=== PATIENT | female | born 1935 ===

== ENCOUNTER 2018-10-23 00:14 | Inpatient (IN) | payer MEDICARE, OTHER ==
[2018-10-23] VITALS (14 sets, daily range): BP systolic 113–182; BP diastolic 47–88
[~2018-10-23] VITALS: Ht 167.6 cm; Wt 60.3 kg
[~2018-10-23 00:14] MED LIST: AMLO-101 PO; ASPI-1471 PO; ATOR40TA24 PO; BACITRACIN 50000 UNIT/VIAL 50,000 UNIT in NS 0.9% IRRIG(*) 1000ML PLCT 1,000 ML IR PRN; CARV25TA77 PO; INSU100V24 SQ; LANI SUBQ; LEVO-3 PO; RAMI10CA9 PO; UBID100C48 PO; ceFAZolin(*) 1 GM VIAL 1 GM in NS(*) 0.9% 100 ML MINI-BAG 100 ML IVPB ONE
[2018-10-23] MEDS: ACETAMINOPHEN 500 MG TAB PO ONE ×2 (08:02→08:05)
[2018-10-23] MEDS ORDERED: NORMOSOL R SOLN(*) 1000 ML BAG 1,000 ML IV PRN (08:05)
[2018-10-23] MEDS ORDERED: MIDAZOLAM 2 MG/2 ML VIAL IVP PRN (08:05)
[2018-10-23] MEDS ORDERED: PREGABALIN 75 MG CAPSULE PO ONE (08:05)
[2018-10-23] MEDS ORDERED: ceFAZolin(*) 1 GM VIAL 1 GM in NS(*) 0.9% 100 ML MINI-BAG 100 ML IVPB ONE (08:05)
[2018-10-23] MEDS ORDERED: BACITRACIN 50000 UNIT/VIAL 50,000 UNIT in NS 0.9% IRRIG(*) 1000ML PLCT 1,000 ML IR PRN (08:05)
[2018-10-23] MEDS ORDERED: FAMOTIDINE 20 MG TAB PO ONE (08:05)
[2018-10-23] MEDS ORDERED: LIDOCAINE/SOD BICARB 8.4% SYR ID ONE (08:05)
[2018-10-23] MEDS ORDERED: ROPIVACAINE 0.2% 20 ML VIAL ONE (09:07)
[2018-10-23] MEDS ORDERED: HYDROmorphone HCL 2 MG/ML SDV ONE (09:44)
[2018-10-23] MEDS ORDERED: ONDANSETRON 4 MG/2 ML VIAL ONE (11:17)
[2018-10-23] MEDS ORDERED: PROPOFOL EMUL(*) 10MG/ML 20 ML 20 ML ONE (11:17)
[2018-10-23] MEDS ORDERED: DEXAMETHASONE SOD PHOS 10MG/ML ONE (11:17)
[2018-10-23] MEDS ORDERED: SUGAMMADEX SOD 200 MG/2 ML SDV ONE (11:34)
--- NOTE | 2018-10-23 11:53 | RADIOLOGY IMAGING REPORT ---
FACILITY: [facility] PATIENT NAME: Shi Pierre : 1935 MR: [id number] V: [id number] EXAM DATE: ORDERING PHYSICIAN: WILMER DAS TECHNOLOGIST: Location: [facility] Patient: Shi Pierre : 1935 Visit/Account:[id number] Date of Sevice: 10/23/2018 Lumbar spine Indication: Back pain. Comparison: None available FINDINGS: Single lateral intraoperative view of the lumbar spine demonstrates extensive degenerative changes of the disks, endplates and posterior elements. Metallic hardware is noted anterior to the s pine at the presumed level of L4, however the lumbar spine is not entirely visualized to confirm the level. IMPRESSION: 1. Multilevel degenerative changes of the lower lumbar spine. Report Dictated By: WILMER REGAN at 10/23/2018 11:35 AM Report E-Signed By: WILMER REGAN at 10/23/2018 11:45 AM WSN:[id number]
[2018-10-23] MEDS ORDERED: LR(*) 1000 ML BAG 1,000 ML IV PRN (12:30)
[2018-10-23] MEDS ORDERED: BISACODYL 10 MG SUPP PR PRN (12:30)
[2018-10-23] MEDS ORDERED: ACETAMINOPHEN 500 MG TAB PO PRN (12:30)
[2018-10-23] MEDS ORDERED: ONDANSETRON 4 MG/2 ML VIAL IVP PRN (12:30)
[2018-10-23] MEDS ORDERED: ACETAMINOPHEN(*)1000 MG/100 ML 100 ML IVPB PRN (12:30)
[2018-10-23] MEDS ORDERED: oxyCODONE HCL 5 MG CAP PO PRN (12:30)
[2018-10-23] MEDS ORDERED: FLUSH 10 ML SYR IVP PRN (12:30)
[2018-10-23] MEDS ORDERED: APAP/HYDROCODONE 325/5 TAB PO PRN (12:30)
[2018-10-23] MEDS ORDERED: BENZOCAINE/MENTHOL 1 EACH LOZG PO PRN (12:30)
[2018-10-23] MEDS ORDERED: diphenhydrAMINE 25 MG CAP PO PRN (12:30)
[2018-10-23] MEDS ORDERED: MAGNESIUM HYDROXIDE* 30ML UDCP PO PRN (12:30)
[2018-10-23] MEDS ORDERED: HYDROmorphone HCL 2 MG/ML SDV IVP PRN (12:30)
--- NOTE | 2018-10-23 12:36 | OPERATIVE REPORT 1 ---
EVENT DATE: October 23, 2018 SURGEON: Duncan Simpson MD ANESTHESIOLOGIST: Wayne Guzman MD ANESTHESIA: General endotracheal. DIRECTOR FOOD AND BEVERAGE: Jamie Arizmendi PA-C PREOPERATIVE DIAGNOSES 1. Retained deep hardware in the form of interspinous process spacers at L2-L3, L3-L4 and L4-L5. 2. Lumbar kyphosis/loss of lordosis. 3. Severe spinal stenosis at L2-L3. POSTOPERATIVE DIAGNOSES 1. Retained deep hardware in the form of interspinous process spacers at L2-L3, L3-L4 and L4-L5. 2. Lumbar kyphosis/loss of lordosis. 3. Severe spinal stenosis at L2-L3. PROCEDURE PERFORMED 1. Removal of spinous process spacers at L2-L3, L3-L4 and L4-L5. 2. L2-L3 laminectomy and bilateral foraminotomies. IV FLUIDS 1700 cc. ESTIMATED BLOOD LOSS 120 cc. IMPLANTS None. SPECIMENS None. DRAINS None. COMPLICATIONS None. DISPOSITION Post-Anesthesia Care Unit. INDICATIONS FOR SURGERY Ms. Pierre is an 83-year old female who underwent placement of interspinous process spacers in 2013. Postoperatively, she had some improvement in her symptoms but over time she has had worsening back pain that she feels is due to the fact that she has a forward flexed posture since placement of said spacers. Her imaging studies showed spinous process devices that we ultimately identified as [place] [employer] spinous process plates. We discussed potential removal of those to see if we could give her an increase in flexibility so that she could regain some of her lumbar lordosis but before doing this we also obtained an MRI that showed severe stenosis at L2-L3, so I recommended performing an L2-L3 laminectomy at the same time to hopefully avoid the necessity of going back for additional surgery. Ms. Pierre agreed with this plan. Prior to surgery, I explained in detail to the patient the possible risks of surgery. These risks include bleeding, infection, damage to surrounding structures, nerve root injury, spinal fluid leak, persistent and/or worsening pain, need for further surgery, , blindness, sexual dysfunction, autonomic nervous system dysfunction and other unforeseen medical and surgical complications. An understanding that in general spinal surgery is more predictive at improving extremity discomfort than axial back pain was stressed. DESCRIPTION OF PROCEDURE On the date of surgery, the patient was met in the preoperative hold area and all questions were answered. The operative site was identified and marked by myself. The patient was brought in good condition to the operating room and after succumbing to anesthesia was positioned in the prone position on a Rell table. All bony protuberances and soft tissues were well padded in the standard fashion. Preoperative antibiotics were administered according to the appropriate timing schedule. Care was taken to maintain appropriate perfusion pressure during anesthesia. At the conclusion of the procedure, sponge and needle counts were correct x2. A final time-out was undertaken by members of the operating team to confirm correct patient, correct levels and correct surgery. The patient was then prepped and draped in a standard sterile orthopedic fashion and a vertical incision was made utilizing the surgical scar from the previous surgery. Sharp dissection was carried out down to the spinous processes and then out lateral over the spinous processes until I was able to identify and uncover the interspinous devices at L2-L3, L3-L4 and L4-L5. Once we cleared these of soft tissue and any overlying bone, the screwdriver was used to loosen the set screw and we then were able to ultimately remove the spinous process spacers at all three levels. All parts of each spacer were identified after they were removed to ensure that no pieces were retained Attention was then turned to performance of the lumbar laminectomy. The spinous process of L2 was removed with a combination of [place] rongeur and a quickhuddle bone cutter. The lamina was then thinned down the midline and bilaterally using a high-speed bur. The ligamentum flavum was teased away from the inferior aspect of the L2 lamina using a Stack curette and I then was able to slide a [place] elevator into the canal to separate any dural adhesions from surrounding bone or soft tissue prior to the use of a Kerrison punch. #3 and #4 Kerrison rongeurs were used to perform a midline decompression and I then performed bilateral lateral recess decompression, removing an incredible amount of thickened and somewhat calcified ligamentum flavum from within the canal, particularly adjacent to the L2-L3 facet joint. A [place] elevator and then a Rios ball-tip probe were passed along the lateral gutters once the decompressions were complete to ensure that we had adequate decompression of the neural elements, both in the lateral gutters and then out the foramina of all involved nerve roots. Hemostasis was obtained in the lateral gutters with the use of FloSeal and surgical patties and we then irrigated the entire wound with copious antibiotic impregnated sterile saline solution. The surgical patties were then removed and the wound closed in layers using running Stratafix suture for the deep fascia, inverted interrupted sutures for the subcutaneous tissue and then a running subcuticular skin stitch. Sponge and needle counts were correct x2. POSTOPERATIVE CARE PLAN The patient will remain in the hospital until she meets discharge criteria. Once she has cleared PT and is doing otherwise well, she will be discharged home with instructions to follow up in two weeks for wound check and examination. TRINA
[2018-10-23] MEDS ORDERED: fentaNYL CITR 100 MCG/2 ML AMP ONE (12:54)
--- NOTE | 2018-10-23 15:30 | NUR ---
Physical Therapy Impression Pt notes that she is having increased discomfort at R) groin and indicates a radiating pattern that extends from her back and wraps around to the inguinal triangle area. Pt describes this as a spasm but no palpable muscle tension is noted in this area. SBAR with nursing to pass along pt's concern. Pt was then agreeable to attempt side stepping at EOB in an attempt to relieve this symptom. Pt required CGA/Min assist for initial sit to stand and then was CGA for side stepping and log roll. Pt positioned comfortably in side lying upon PT's departure with pillows to prevent twisting. Pt would benefit from home healthcare services as she resides alone and is currently having greater difficulty with pain management issues. Physical Therapy Goals 1. Pt to be SBA/CGA for bed mobility and supine to/from sit transfers 2. Pt to be SBA/CGA for sit to/from stand transfers 3. Pt to ambulate x 100' with least restrictive device 4. Pt to tolerate up/down 2 steps with rail and SBA/CGA Patient's Goals
[2018-10-23] MEDS: DIAZEPAM 5 MG TAB PO PRN ×2 (15:46→23:30)
--- NOTE | 2018-10-23 16:15 | Hospitalist Consultation ---
History of Present Illness Requesting Physician Dr. Simpson Reason for Consult Hypertension and Diabetes management History of Present Illness S/P laminectomy from Dr. Simpson on 10/23. No surgical complications reported. Dressing required reinforcement after she was admitted to Med/Surg unit. History Problems: (1) HTN (hypertension) (2) Hyperlipidemia (3) Diabetes (4) DVT (deep venous thrombosis) (5) Pulmonary emboli Status: Resolved Home Meds Reported Medications Insulin Lispro 100 Un/Ml Vial (HUMALOG 100 U/ML VIAL) 100 Unit/1 Ml Vial, 0 SQ PRN, VIAL 10/16/18 Insulin Glargine (LANTUS) 100 Unit/Ml Soln, 15 UNIT SUBQ QAM, ML 10/16/18 Ramipril (RAMIPRIL) 10 Mg Capsule, 10 MG PO BID, CAPSULE 10/16/18 Ubidecarenone (COQ-10) 100 Mg Capsule, 100 MG PO QDAY, CAPSULE 10/16/18 Aspirin (ASPIR 81) 81 Mg Tablet.dr, 81 MG PO QDAY, TAB 10/16/18 Atorvastatin Calcium (LIPITOR) 40 Mg Tablet, 1 TAB PO QDAY, TAB 10/16/18 Amlodipine Besylate (NORVASC) 5 Mg Tablet, 1 TAB PO QDAY, TAB 10/16/18 Carvedilol (COREG) 25 Mg Tablet, 25 MG PO BID, #10 TAB 10/16/18 Levothyroxine Sodium (LEVOTHYROXINE SODIUM) 100 Mcg Tablet, 125 MCG PO QDAY, TAB 10/16/18 Allergies: Coded Allergies: No Known Drug Allergies (Unverified , 10/16/18) Smoking Status: Former Smoker When Quit Tobacco?: LATE Caffeine Intake: Coffee Caffeine/Cups Per Day: 6/DAY Hx Alcohol Use: No Hx Substance Use Disorder: No Social Drug Use: Never History of IV Drug Use: No Review of Systems All Systems Reviewed/Normal: Yes Exam Vital Signs Vital Signs Date Time Temp Pulse Resp B/P (MAP) Pulse Ox O2 Delivery O2 Flow Rate FiO2 10/23/18 15:15 63 144/67 (92) 10/23/18 15:00 96 Nasal Cannula 3.0 10/23/18 14:10 16 10/23/18 14:10 97.7 General Appearance: Alert, Awake, No Acute Distress Cardiovascular: Regular Rate and Rhythm Respiratory: No Respiratory Distress, Clear to Auscultation Assessment and Plan Problems: (1) S/P laminectomy Assessment & Plan: S/P Laminectomy by Dr. Simpson on 10/23. Considerable amount of post op bleeding saturating through dressing and notable swelling around incision. Aspirin on hold, will consider speaking with surgery prior to restarting Aspirin. (2) Diabetes Assessment & Plan: Blood sugar in PACU was 121. She manages with Lantus and Humalog at home. Will cover with AC/HS blood sugar checks and SSI level 1. Consider restarting Lantus if necessary, when she is eating. (3) HTN (hypertension) Assessment & Plan: Covered by Coreg, Norvasc, and Ramipril with parameters. (4) Hyperlipidemia Assessment & Plan: Covered by Lipitor. (5) Pulmonary emboli Status: Resolved Assessment & Plan: Hx of PE. based on post op bleeding Aspirin on hold, may consider discussing with surgery concerning any anticoagulation and aspirin continuation. (6) DVT (deep venous thrombosis) Assessment & Plan: Hx of DVT. See above for aspirin consideration. Venous Thromboembolism Antithrombotics Is Pt On Any Antithrombotics?: No Exam Sepsis Risk: No Definite Risk HI JAMES Oct 23, 2018 16:15
[2018-10-23] MEDS ORDERED: NS(*) 0.9% 250 ML BAG 250 ML ONE (17:09)
[2018-10-23] MEDS: ceFAZolin(*) 2GM/D5W 50ML 50 ML IVPB SCH (17:19)
[2018-10-23] MEDS: DOCUSATE SODIUM 100 MG CAP PO SCH (20:21)
[2018-10-23] MEDS: RAMIPRIL 2.5 MG CAP PO SCH (20:21)
[2018-10-23] MEDS: CARVEDILOL 25 MG TABLET PO SCH (20:21)
[2018-10-23] MEDS: INSULIN HUM LISPRO 100 UN/ML 3 ML VIAL SUBQ PRN ×2 (20:30→23:24)
[2018-10-24] MEDS: ceFAZolin(*) 2GM/D5W 50ML 50 ML IVPB SCH ×2 (00:36→09:17)
[2018-10-24] MEDS ORDERED: LEVOTHYROXINE SOD 0.125 MG TAB PO SCH (06:00)
[2018-10-24 07:08] VITALS: BP 168/76
[2018-10-24 07:57] LABS: PLATELET COUNT, AUTOMATED 179 K/uL (150-450)
[2018-10-24] MEDS: INSULIN HUM LISPRO 100 UN/ML 3 ML VIAL SUBQ PRN (08:04)
[2018-10-24 08:38] VITALS: Ht 167.6 cm; Wt 60.3 kg
[2018-10-24] MEDS ORDERED: SALINE 0.65% NAS SPR 44 ML BTL PRN (08:45)
[2018-10-24] MEDS ORDERED: ATORVASTATIN 40 MG TAB PO SCH (09:00)
[2018-10-24] MEDS ORDERED: amLODIPine BESYL(*) 5 MG TAB PO SCH (09:00)
[2018-10-24] MEDS ORDERED: INSULIN GLARGINE 100 U/ML 3 ML PEN SUBQ SCH (09:00)
--- NOTE | 2018-10-24 09:14 | Hospitalist Progress Note ---
Subjective Progress Notes Subjective She was admitted s/p lumbar surgery. She has no complaints this morning. She had no acute events overnight. Patient Complains of: Cardiovascular: No: Chest Pain Respiratory: No: Shortness of Breath Physical Exam Vital Signs Date Time Temp Pulse Resp B/P (MAP) Pulse Ox O2 Delivery O2 Flow Rate FiO2 10/24/18 08:14 90 10/24/18 08:14 Room Air 10/24/18 07:08 97.9 70 12 168/76 (106) 10/23/18 23:05 3.0 Intake and Output 10/24/18 01:03 Intake Total 1600 ml Output Total 750 ml Balance 850 ml Intake Oral 0 ml IV Total 1600 ml Output Urine Total 750 ml General Appearance: Alert, Awake, No Acute Distress, Afebrile Neuro: No Gross deficits Cardiovascular: Regular Rate and Rhythm Respiratory: No Respiratory Distress, Clear to Auscultation Extremities: Warm, Perfused; No Edema Psych: Alert & Oriented X3, Appropriate Mood & Affect Result Diagram: 10/24/18 0749 10/24/18 0749 Assessment and Plan Problems: (1) S/P laminectomy Assessment & Plan: S/P Laminectomy by Dr. Simpson on 10/23. She was noted to have considerable amount of post op bleeding saturating through dressing and notable swelling around incision. Aspirin on hold for three more days prior to restarting. Bleeding controlled this am. Hgb and Hct stable. (2) Diabetes Assessment & Plan: Continue chronic Lantus and Humalog. Will cover with AC/HS blood sugar checks and SSI level 1. (3) HTN (hypertension) Assessment & Plan: Continue chronic Coreg, Norvasc, and Ramipril with hold parameters. (4) Hyperlipidemia Assessment & Plan: Covered by Lipitor. (5) Pulmonary emboli Status: Resolved Assessment & Plan: Hx of PE. See above. (6) DVT (deep venous thrombosis) Assessment & Plan: Hx of DVT. See above for aspirin consideration. Exam Sepsis Risk: No Definite Risk Problem Qualifiers (1) HTN (hypertension): Hypertension type: essential hypertension Qualified Codes: I10 - Essential (primary) hypertension FRANKY PUTNAM MATERIAL HANDLING WAREHOUSE SUPERVISOR Oct 24, 2018 09:14
[2018-10-24] MEDS: CARVEDILOL 25 MG TABLET PO SCH (09:17)
[2018-10-24] MEDS: RAMIPRIL 2.5 MG CAP PO SCH (09:17)
[2018-10-24] MEDS: DOCUSATE SODIUM 100 MG CAP PO SCH (09:18)
--- NOTE | 2018-10-24 10:24 | NUR ---
Physical Therapy Impression PT goals met with distance ambulation and up/down 2 steps. Pt notes that she has 4WW available if needed, but does not intend to use it unless necessary. Pt tolerated ambulation both with and without FWW in noel. PT does, however, recommend [facility] services to bridge transition home, as pt resides alone and has ongoing bleeding noted. Pt would benefit from nursing service to address incision line care and MOLASSES PREPARER for safety with self care and showers once cleared by surgeon. PT would be beneficial to address balance and adherence to standard back precautions of no bending greater than 70 degrees, no twisting and no lifting greater than 15 lbs. Physical Therapy Goals 1. Pt to be SBA/CGA for bed mobility and supine to/from sit transfers 2. Pt to be SBA/CGA for sit to/from stand transfers 3. Pt to ambulate x 100' with least restrictive device 4. Pt to tolerate up/down 2 steps with rail and SBA/CGA Patient's Goals
[2018-10-24] MEDS ORDERED: DOCU240C84 PO (10:50)
[2018-10-24] MEDS ORDERED: ACET-3017 PO (10:51)
[2018-10-24] MEDS ORDERED: DIA5 PO (10:51)
--- NOTE | 2018-10-24 11:49 | NUR ---
PHYSICAL THERAPY INFORMATION TRANSFER SHEET BED MOBILITY: Verbal cues Modified I/ AE TRANSFERS: Standby Assistance Verbal cues Modified I/ AE GAIT: 150 ' with None RW and Standby Assistance Verbal cues Modified I/ AE Weightbearing Status: STAIRS: 2 with Standby Assistance Modified I/ AE. EXERCISES: Verbalizes Needs: Yes Understands Directions Yes Cooperative: Yes Family Teaching: Yes Physical Therapy Comment: PT goals met with distance ambulation and up/down 2 steps. Pt notes that she has 4WW available if needed, but does not intend to use it unless necessary. Pt tolerated ambulation both with and without FWW in noel. PT does, however, recommend [facility] services to bridge transition home, as pt resides alone and has ongoing bleeding noted. Pt would benefit from nursing service to address incision line care and APPLICATIONS DEVELOPER for safety with self care and showers once cleared by surgeon. PT would be beneficial to address balance and adherence to standard back precautions of no bending greater than 70 degrees, no twisting and no lifting greater than 15 lbs.
== END 2018-10-24 11:20 | disposition home health service (06) | DRG 517 ==
LOC: OR 00:14 → MED 14:10
PROVIDERS: ADMIT Orthopaedic Surgery; ATTEND Orthopaedic Surgery
PROC: 01NB0ZZ Release Lumbar Nerve, Open Approach (ICD-10-PCS; principal; 2018-10-23 09:34)
PROC: 0SP008Z Removal of Spacer from Lumbar Vertebral Joint, Open Approach (ICD-10-PCS; 2018-10-23 09:34)
PROC: 0SP Lower Joints, Removal (ICD-10-PCS; 2018-10-23 09:34)
DX: M96.4 Postsurgical lordosis (principal); M48.061 Spinal stenosis, lumbar region without neurogenic claudication; M51.36 Other intervertebral disc degeneration, lumbar region; I10 Essential (primary) hypertension; E11.9 Type 2 diabetes mellitus without complications; E78.5 Hyperlipidemia, unspecified; Z86.711 Personal history of pulmonary embolism; Z86.718 Personal history of other venous thrombosis and embolism; Z79.4 Long term (current) use of insulin; Z87.891 Personal history of nicotine dependence
CPT/HCPCS: 36415; 36416; 72020; 82310; 82374; 82435; 82565; 82947; 82948; 84132; 84295; 84520; 85025; 97161; J0690; J1100; J1170; J1815; J2250; J2405; J2704; J2795; J3010; Q0163